=== PATIENT | female | born 1990 | race African-American/Black ===

== ENCOUNTER 2018-04-27 10:38 | Emergency (ER) | payer OTHER ==
[~2018-04-27] VITALS: Ht 165.1 cm; Wt 54.4 kg
[2018-04-27 10:42] VITALS: BP 117/71
[2018-04-27] MEDS ORDERED: NAPROSYN500 MG PO (11:21)
== END 2018-04-27 11:51 | disposition home or self-care (01) ==
LOC: ER 10:38
DX: S00.03XA Contusion of scalp, initial encounter (principal); Y04.0XXA Assault by unarmed brawl or fight, initial encounter; Y93.89 Activity, other specified; Y92.89 Other specified places as the place of occurrence of the external cause; Y99.8 Other external cause status